=== PATIENT | female | born 1985 | race Caucasian/White ===

== ENCOUNTER 2023-03-30 23:13 | Inpatient (IN) | payer OTHER ==
[~2023-03-30] VITALS: Ht 160 cm; Wt 73.5 kg
[2023-03-30] MEDS ORDERED: NITROGLYCERIN OINT 1 GM PACKET TP ONE (23:45)
[2023-03-31] MEDS ORDERED: IV NORMAL SALINE 250 ML IV ONE ×2 (00:04→12:01)
[2023-03-31] MEDS ORDERED: IOHEXOL 350 100 ML INFUS..BTL ONE ×2 (00:04→12:01)
[2023-03-31] MEDS ORDERED: NITROGLYCERIN OINT 1 GM PACKET TP ONE (00:09)
[2023-03-31 00:37] LABS: ALANINE AMINOTRANSFERASE 14 U/L (14-59); ALKALINE PHOSPHATASE 165 U/L (50-136); ASPARTATE AMINOTRANSFERASE 20 U/L (15-37); BILIRUBIN,DIRECT 0.2 mg/dL (0.0-0.2); BILIRUBIN,TOTAL 0.6 mg/dL (0.2-1.0); CHLORIDE 95 mmol/L (98-107); CREATININE 1.1 mg/dL (0.6-1.3); GLUCOSE 112 mg/dL (74-106); POTASSIUM 3.1 mmol/L (3.5-5.1); TOTAL PROTEIN, SERUM 7.9 g/dL (6.4-8.2); UREA NITROGEN, BLOOD 9 mg/dL (7-18)
[2023-03-31 00:41] LABS: CARBON DIOXIDE 43 mmol/L (21-32)
[2023-03-31 00:48] LABS: ABG HCO3 35.7 mmol/L; ABG PCO2 52.6 mmHg (35.0-45.0); ABG PH 7.449 (7.350-7.450); ABG PO2 83.8 mmHg (75.0-100.0); ABG SITE RIGHT RADIAL; ABG TOTAL HEMOGLOBIN 12.1 G/dL (12.0-16.0); COHb 7.5 % (0.5-1.5); MetHb 0.2 % (0.0-1.5); O2Hb 89.1 % (94.0-97.0); VENT MODE Nasal Cannula
[2023-03-31] MEDS ORDERED: ENOXAPARIN SODIUM 80 MG/0.8 ML DISP.SYRIN SQ ONE ×2 (01:45→01:53)
[2023-03-31] MEDS ORDERED: ARIPIPRAZOLE 5 MG TABLET ONE (01:52)
[2023-03-31] MEDS ORDERED: ESCITALOPRAM OXALATE 10 MG TABLET ONE (01:52)
[2023-03-31] MEDS ORDERED: ALPRAZOLAM 0.5 MG TABLET ONE (01:52)
[2023-03-31] MEDS ORDERED: ALPRAZOLAM 0.25 MG TABLET PO ONE (02:00)
[2023-03-31] MEDS ORDERED: ESCITALOPRAM OXALATE 10 MG TABLET PO ONE (02:00)
[2023-03-31] MEDS ORDERED: ARIPIPRAZOLE 5 MG TABLET PO ONE (02:00)
[2023-03-31 03:11] LABS: HEMATOCRIT 38.7 % (31.2-41.9); MEAN CORPUSCULAR HEMOGLOBIN 20.3 uug (24.7-32.8); MEAN CORPUSCULAR VOLUME 68.9 fL (75.5-95.3); PLATELET COUNT (AUTO) 112 K/uL (179-408)
[2023-03-31] MEDS ORDERED: ALPR2TAB7 PO (04:08)
[2023-03-31] MEDS ORDERED: FURO40TA5 PO (04:08)
[2023-03-31] MEDS ORDERED: ZOLP10TA2 PO (04:08)
[2023-03-31] MEDS ORDERED: ESCI20TA PO (04:08)
[2023-03-31] MEDS ORDERED: ARIP20TA4 PO (04:08)
[2023-03-31] MEDS ORDERED: CEPH500C2 PO (04:08)
[2023-03-31] MEDS ORDERED: POTA-88 PO (04:08)
[2023-03-31 06:12] VITALS: BP 127/78
[2023-03-31] MEDS ORDERED: HYDROCODONE/APAP 5-325MG TABLET PO PRN (06:15)
[2023-03-31] MEDS ORDERED: ZOLPIDEM 5 MG TABLET PO PRN (06:15)
[2023-03-31] MEDS ORDERED: ONDANSETRON 4 MG/2 ML VIAL IV PRN (06:15)
[2023-03-31] MEDS ORDERED: MAGNESIUM HYDROXIDE 30 ML LIQUID UDC PO PRN (06:15)
[2023-03-31] MEDS ORDERED: REMEDY ESSENTIAL ZINC PASTE 113 GM TP PRN (06:15)
[2023-03-31] MEDS ORDERED: ACETAMINOPHEN 325 MG TABLET PO PRN (06:15)
[2023-03-31] MEDS ORDERED: ARIPIPRAZOLE 10 MG TABLET PO SCH (09:00)
[2023-03-31] MEDS: FUROSEMIDE 40 MG TABLET PO SCH (09:08)
[2023-03-31] MEDS: ESCITALOPRAM OXALATE 10 MG TABLET PO SCH (09:08)
[2023-03-31] MEDS: POTASSIUM CHLORIDE 20 MEQ TAB.PRT.SR PO SCH (09:08)
[2023-03-31] MEDS: ALPRAZOLAM 0.5 MG TABLET PO SCH ×2 (09:09→16:42)
[2023-03-31] MEDS: PANTOPRAZOLE SODIUM 40 MG TABLET.DR PO SCH (09:11)
[2023-03-31 10:17] LABS: BAND % (MANUAL) 0 % (0-10); EOSINOPHILS % (MANUAL) 3 % (0-8); LYMPHOCYTES % (MANUAL) 26 % (20-40); MONOCYTES % (MANUAL) 5 % (2-10); NEUTROPHILS % (MANUAL) 66 % (42-75)
[2023-03-31 10:18] LABS: BASOPHILS % (MANUAL) 0 % (0-2); BLASTS, MANUAL % 0 % (0-0); METAMYELOCYTES % 0 % (0-1); MYELOCYTES % 0 % (0-0); PROMYELOCYTES % 0 %; REACTIVE LYMPHOCYTES 0 % (0-0)
[2023-03-31 11:30] VITALS: BP 124/79
[2023-03-31] MEDS ORDERED: SWABABLE VALVE TRANSFER SET EA MC ONE (12:01)
[2023-03-31 12:15] LABS: IRON, SERUM 26 ug/dL (50-175)
[2023-03-31] MEDS ORDERED: POTASSIUM CHLORIDE 20 MEQ TAB.PRT.SR PO ONE (13:00)
[2023-03-31] MEDS: MORPHINE SULFATE 4 MG/1 ML DISP.SYRIN IV PRN (13:20)
[2023-03-31] MEDS: ENOXAPARIN SODIUM 80 MG/0.8 ML DISP.SYRIN SQ SCH (13:21)
[2023-03-31] MEDS ORDERED: ENOXAPARIN SODIUM 80 MG/0.8 ML DISP.SYRIN SQ SCH (14:00)
[2023-03-31 16:19] VITALS: BP 107/69
[2023-03-31 20:10] VITALS: BP 108/69
[2023-04-01] MEDS: ENOXAPARIN SODIUM 80 MG/0.8 ML DISP.SYRIN SQ SCH ×2 (01:08→17:36)
[2023-04-01 04:21] VITALS: BP 103/68
[2023-04-01] MEDS: PANTOPRAZOLE SODIUM 40 MG TABLET.DR PO SCH (06:00)
[2023-04-01 07:34] LABS: CREATININE 0.9 mg/dL (0.6-1.3); MAGNESIUM 1.8 mg/dL (1.8-2.4); PHOSPHOROUS 3.4 mg/dL (2.5-4.9); POTASSIUM 3.7 mmol/L (3.5-5.1)
[2023-04-01 07:43] LABS: THYROID STIMULATING HORMONE 1.481 mIU/mL (0.358-3.740)
[2023-04-01 07:51] LABS: HEMATOCRIT 36.9 % (31.2-41.9); MEAN CORPUSCULAR VOLUME 69.6 fL (75.5-95.3); PLATELET COUNT (AUTO) 116 K/uL (179-408)
[2023-04-01] MEDS: POTASSIUM CHLORIDE 20 MEQ TAB.PRT.SR PO SCH (08:48)
[2023-04-01] MEDS: ALPRAZOLAM 0.5 MG TABLET PO SCH ×2 (08:49→17:30)
[2023-04-01] MEDS: ESCITALOPRAM OXALATE 10 MG TABLET PO SCH (08:49)
[2023-04-01] MEDS: FUROSEMIDE 40 MG TABLET PO SCH (08:49)
[2023-04-01 09:16] LABS: EOSINOPHILS % (MANUAL) 4 % (0-8); LYMPHOCYTES % (MANUAL) 51 % (20-40); MONOCYTES % (MANUAL) 3 % (2-10); MYELOCYTES % 2 % (0-0); NEUTROPHILS % (MANUAL) 40 % (42-75)
[2023-04-01 12:00] VITALS: BP 128/81
[2023-04-01] MEDS: ALBUTEROL SULFATE 2.5 MG/3 ML NEBU NEB SCH ×3 (12:30→20:43)
[2023-04-01] MEDS: IPRATROPIUM BROMIDE 0.5 MG/2.5 ML NEBU NEB SCH ×3 (12:30→20:42)
[2023-04-01] MEDS ORDERED: methylPREDNISolone SOD SUCC 125 MG/2 ML VIAL IV ONE (12:30)
[2023-04-01] MEDS ORDERED: FLUTICASONE/SALMETEROL 250/50 INHALER INH SCH (12:30)
[2023-04-01] MEDS: FLUTICASONE/VILANTEROL 1 EACH BLST.W.DEV INH SCH (13:21)
[2023-04-01] MEDS: MORPHINE SULFATE 4 MG/1 ML DISP.SYRIN IV PRN ×4 (13:36→22:42)
[2023-04-01 16:00] VITALS: BP 116/56
[2023-04-01] MEDS: NICOTINE 21 MG/24HR PATCH TD SCH (16:06)
[2023-04-01] MEDS: ARIPIPRAZOLE 10 MG TABLET PO SCH (17:30)
[2023-04-01 20:00] VITALS: BP 117/62
[2023-04-02] VITALS: BP 109/67
[2023-04-02 04:00] VITALS: BP 137/73
[2023-04-02 06:41] LABS: HEMATOCRIT 38.3 % (31.2-41.9); MEAN CORPUSCULAR HEMOGLOBIN 20.3 uug (24.7-32.8); MEAN CORPUSCULAR VOLUME 69.1 fL (75.5-95.3); PLATELET COUNT (AUTO) 129 K/uL (179-408)
[2023-04-02] MEDS: ENOXAPARIN SODIUM 80 MG/0.8 ML DISP.SYRIN SQ SCH ×2 (06:41→17:18)
[2023-04-02] MEDS: PANTOPRAZOLE SODIUM 40 MG TABLET.DR PO SCH (06:41)
[2023-04-02 06:54] LABS: PHOSPHOROUS 3.5 mg/dL (2.5-4.9); POTASSIUM 4.3 mmol/L (3.5-5.1)
[2023-04-02] MEDS: ALBUTEROL SULFATE 2.5 MG/3 ML NEBU NEB SCH ×3 (07:43→15:46)
[2023-04-02] MEDS: IPRATROPIUM BROMIDE 0.5 MG/2.5 ML NEBU NEB SCH ×3 (07:43→15:46)
[2023-04-02] MEDS ORDERED: predniSONE 20 MG TABLET PO SCH (08:00)
[2023-04-02] MEDS: NICOTINE 21 MG/24HR PATCH TD SCH (08:34)
[2023-04-02] MEDS: ALPRAZOLAM 0.5 MG TABLET PO SCH ×2 (08:35→16:28)
[2023-04-02] MEDS: FUROSEMIDE 40 MG TABLET PO SCH (08:35)
[2023-04-02] MEDS: ESCITALOPRAM OXALATE 10 MG TABLET PO SCH (08:35)
[2023-04-02] MEDS: FLUTICASONE/VILANTEROL 1 EACH BLST.W.DEV INH SCH (08:35)
[2023-04-02] MEDS: POTASSIUM CHLORIDE 20 MEQ TAB.PRT.SR PO SCH (08:36)
[2023-04-02] MEDS ORDERED: methylPREDNISolone SOD SUCC 125 MG/2 ML VIAL IV SCH (10:00)
[2023-04-02 10:56] LABS: ABG BASE EXCESS 13.7 mmol/L; ABG HCO3 39.8 mmol/L; ABG PCO2 56.7 mmHg (35.0-45.0); ABG PH 7.464 (7.350-7.450); ABG PO2 46.5 mmHg (75.0-100.0); ABG SITE LEFT BRACHIAL; ABG TOTAL HEMOGLOBIN 12.7 G/dL (12.0-16.0); COHb 1.4 % (0.5-1.5); MetHb 0.2 % (0.0-1.5); O2Hb 83.5 % (94.0-97.0); VENT MODE ROOM AIR
[2023-04-02] MEDS: MORPHINE SULFATE 4 MG/1 ML DISP.SYRIN IV PRN (11:09)
[2023-04-02 14:06] LABS: LYMPHOCYTES % (MANUAL) 29 % (20-40); MONOCYTES % (MANUAL) 5 % (2-10); NEUTROPHILS % (MANUAL) 66 % (42-75)
[2023-04-02] MEDS ORDERED: PRED20TA PO (15:30)
[2023-04-02] MEDS ORDERED: RIVA20TA PO (15:30)
[2023-04-02] MEDS ORDERED: ALBU8.5H8 INH (15:30)
[2023-04-02] MEDS ORDERED: NALO4SPR BNOSTRILS (15:30)
[2023-04-02] MEDS ORDERED: FLUT1BLS INH (15:30)
[2023-04-02] MEDS ORDERED: NEBU-171 MC (15:30)
[2023-04-02] MEDS ORDERED: IPRA0.2S6 NEB (15:30)
[2023-04-02] MEDS ORDERED: ALBU2.5V7 NEB (15:30)
[2023-04-02 16:00] VITALS: BP 112/64
[2023-04-02] MEDS: ARIPIPRAZOLE 10 MG TABLET PO SCH (17:17)
== END 2023-04-02 19:00 | disposition home health service (06) | DRG 197 ==
LOC: ER 23:15 → TELE3 03-31 04:00
PROVIDERS: ADMIT Student in an Organized Health Care Education/Training Program; ATTEND Nurse Practitioner Acute Care
PROC: 05H933Z Insertion of Infusion Device into Right Brachial Vein, Percutaneous Approach (ICD-10-PCS; principal; 2023-03-31)
DX: I82.432 Acute embolism and thrombosis of left popliteal vein (principal); I26.99 Other pulmonary embolism without acute cor pulmonale; J96.21 Acute and chronic respiratory failure with hypoxia; I27.20 Pulmonary hypertension, unspecified; D50.9 Iron deficiency anemia, unspecified; F17.210 Nicotine dependence, cigarettes, uncomplicated; I08.1 Rheumatic disorders of both mitral and tricuspid valves; I82.461 Acute embolism and thrombosis of right calf muscular vein; I11.9 Hypertensive heart disease without heart failure; I82.443 Acute embolism and thrombosis of tibial vein, bilateral; J44.9 Chronic obstructive pulmonary disease, unspecified; N20.0 Calculus of kidney; N80.9 Endometriosis, unspecified; J96.22 Acute and chronic respiratory failure with hypercapnia; Z14.8 Genetic carrier of other disease; Z90.710 Acquired absence of both cervix and uterus; R91.8 Other nonspecific abnormal finding of lung field; Z87.442 Personal history of urinary calculi; Z88.6 Allergy status to analgesic agent; Z87.01 Personal history of pneumonia (recurrent); R73.03 Prediabetes; Z80.9 Family history of malignant neoplasm, unspecified; J98.11 Atelectasis
CPT/HCPCS: 36415; 36600; 70030-TC; 71045; 71275; 82803; 83550; 83735; 84100; 84443; 84484; 85025; 85730; 93005; 93307; 94640; 94664; A4663; G0378; J1650; J2270; J2930; J3590; J7512; Q9967

== ENCOUNTER 2025-01-12 14:56 | Emergency (ER) | payer OTHER ==
[~2025-01-12] VITALS: Ht 160 cm; Wt 68.0 kg
[~2025-01-12 14:56] MED LIST: ALBU2.5V7 NEB; ALBU8.5H8 INH; ALPR2TAB7 PO; ARIP20TA4 PO; ESCI20TA PO; FLUT1BLS INH; FURO40TA5 PO; IPRA0.2S6 NEB; NALO4SPR BNOSTRILS; NEBU-171 MC; POTA-88 PO; PRED20TA PO; RIVA20TA PO; ZOLP10TA2 PO
[2025-01-12] MEDS: LIDOCAINE 2% (GLYDO= UROJET) 10 ML JELLY MM ONE (17:04)
[2025-01-12 18:16] LABS: BASOPHILS % (AUTO) 0.4 % (0.0-2.0); EOSINOPHILS # (AUTO) 0.1 K/uL (0.0-0.7); EOSINOPHILS % (AUTO) 2.6 % (0.0-7.0); HEMATOCRIT 41.2 % (31.2-41.9); HEMOGLOBIN 13.3 g/dL (10.9-14.3); LYMPHOCYTES # (AUTO) 1.9 K/uL (0.8-4.8); LYMPHOCYTES % (AUTO) 38.3 % (20.5-51.5); MEAN CORPUSCULAR HEMOGLOBIN 25.7 uug (24.7-32.8); MEAN CORPUSCULAR HGB CONC 32 g/dL (32.3-35.6); MEAN CORPUSCULAR VOLUME 79.8 fL (75.5-95.3); MONOCYTES # (AUTO) 0.3 K/uL (0.1-1.30); MONOCYTES % (AUTO) 6.4 % (0.0-11.0); NEUTROPHILS # (AUTO) 2.5 K/uL (1.8-8.9); NEUTROPHILS % (AUTO) 52.3 % (38.5-71.5); PLATELET COUNT (AUTO) 116 K/uL (179-408); RED BLOOD CELL COUNT(AUTO) 5.16 MIL/uL (3.63-4.92); RED CELL DISTRIBUTION WIDTH 18.3 % (12.3-17.7); WHITE BLOOD COUNT (AUTO) 4.9 K/uL (3.8-11.8)
[2025-01-12 18:29] LABS: DIFFERENTIAL COMMENT 1
[2025-01-12 18:38] LABS: CALCIUM 9.1 mg/dL (8.5-10.1); CARBON DIOXIDE 39 mmol/L (21-32); CHLORIDE 100 mmol/L (98-107); CREATININE 0.9 mg/dL (0.6-1.3); GLUCOSE 80 mg/dL (74-106); POTASSIUM 3.7 mmol/L (3.5-5.1); SODIUM SERUM 140 mmol/L (136-145); UREA NITROGEN, BLOOD 15 mg/dL (7-18)
[2025-01-12 18:52] LABS: ALANINE AMINOTRANSFERASE 8 U/L (14-59); ALBUMIN 3.2 g/dL (3.4-5.0); ALKALINE PHOSPHATASE 136 U/L (50-136); ASPARTATE AMINOTRANSFERASE 15 U/L (15-37); BILIRUBIN,DIRECT 0.1 mg/dL (0.0-0.2); BILIRUBIN,TOTAL 0.4 mg/dL (0.2-1.0); LIPASE 18 U/L (16-77); TOTAL PROTEIN, SERUM 6.6 g/dL (6.4-8.2)
[2025-01-12 18:56] LABS: *BILIRUBIN,URIN NEGATIVE (NEGATIVE); *BLOOD, URINE NEGATIVE (NEGATIVE); *CLARITY,URINE CLEAR (CLEAR); *COLOR,URINE YELLOW (YELLOW); *KETONES,URINE NEGATIVE (NEGATIVE); *PROTEIN,URINE NEGATIVE (NEGATIVE); *UROBILINOGEN,URINE 0.2 E.U./dl (NORMAL); LEUKOCYTE ESTERASE ,URINE NEGATIVE (NEGATIVE); NITRITE, URINE NEGATIVE (NEGATIVE); UGLUCOSE NEGATIVE (NEGATIVE)
[2025-01-12 18:57] LABS: *URINE HCG, QUAL NEGATIVE (NEGATIVE)
[2025-01-12] MEDS: MINERAL OIL FLEET ENEMA 133 ML BOTTLE RC ONE (20:15)
[2025-01-12] MEDS ORDERED: ONDANSETRON 4 MG/2 ML VIAL ONE (20:16)
[2025-01-12] MEDS ORDERED: MINERAL OIL FLEET ENEMA 133 ML BOTTLE RC ONE (20:16)
[2025-01-12] MEDS ORDERED: METOCLOPRAMIDE HCL 10 MG/2 ML VIAL ONE (20:17)
[2025-01-12] MEDS ORDERED: BISACODYL 10 MG SUPP.RECT RC ONE (20:17)
[2025-01-12] MEDS ORDERED: MAGNESIUM CITRATE 296 ML BOTTLE ONE (20:17)
[2025-01-12] MEDS: ONDANSETRON 4 MG/2 ML VIAL IV ONE (20:33)
[2025-01-12] MEDS: MAGNESIUM CITRATE 296 ML BOTTLE PO ONE (20:33)
[2025-01-12] MEDS: METOCLOPRAMIDE HCL 10 MG/2 ML VIAL IV ONE (20:33)
[2025-01-12] MEDS: BISACODYL 10 MG SUPP.RECT RC ONE (20:33)
[2025-01-12] MEDS ORDERED: METO-295 PO (22:01)
[2025-01-12] MEDS ORDERED: LACT10SO58 PO (22:01)
[2025-01-12 22:31] VITALS: BP 150/78; TEMP 209.5; O2SAT 99
== END 2025-01-12 22:32 | disposition home or self-care (01) ==
LOC: ER 14:56
DX: K59.09 Other constipation (principal); R07.9 Chest pain, unspecified; R10.9 Unspecified abdominal pain; R94.31 Abnormal electrocardiogram [ECG] [EKG]; F17.210 Nicotine dependence, cigarettes, uncomplicated; J44.89 Other specified chronic obstructive pulmonary disease; Z79.01 Long term (current) use of anticoagulants; Z79.51 Long term (current) use of inhaled steroids; Z79.52 Long term (current) use of systemic steroids; Z79.899 Other long term (current) drug therapy; Z87.442 Personal history of urinary calculi; Z88.6 Allergy status to analgesic agent
CPT/HCPCS: 99285; 74176; 96374; 71045; 96375; 80076; 80048; 81003; 84703; 83690; 85025; 85730; 87086; 84484; 36415; 74018; 93005; J2765; J2405; A4606; A4663